=== PATIENT | female | born 1975 | race Caucasian/White ===

== ENCOUNTER 2018-02-10 21:15 | Emergency (ER) | payer OTHER ==
[~2018-02-10] VITALS: Ht 160 cm; Wt 75.7 kg
[~2018-02-10 21:15] MED LIST: IBUPROFEN800 MG PO; Micronor PO; Motrin PO
[2018-02-10 21:53] LABS: APPEARANCE CLOUDY ((CLEAR)); BILIRUBIN NEGATIVE; BLOOD MODERATE; COLOR YELLOW ((YELLOW)); GLUCOSE (STRIP) NEGATIVE; KETONES 5; LEUKOCYTES LARGE; NITRITE NEGATIVE; PROTEIN (STRIP) 30; SPECIFIC GRAVITY 1.028 (1.000-1.030); UROBILINOGEN 0.2 MG/DL (0.2-1.0)
[2018-02-10 22:14] LABS: BACTERIA 1+ /HPF; EPITHELIAL CELLS 2+ /HPF; MUCUS RARE /LPF; UCUL ADDED? YES; WHITE BLOOD CELLS 15-20 /HPF (0-5)
[2018-02-10 22:14] LABS: HEMATOCRIT 47.9 % (36.0-46.0); HEMOGLOBIN 16.8 G/DL (11.9-15.5); MCH 30.6 PG (29.0-34.0); MCHC 35.1 G/DL (30.0-36.0); MCV 87.2 FL (83-99); PLATELET COUNT 174 K/uL (156-360); RBC DIS.WIDTH-CV 11.9 % (11.8-14.6); RBC DIS.WIDTH-SD 38.2 % (39-53); RED BLOOD COUNT 5.49 M/uL (3.80-5.20)
[2018-02-10 22:29] LABS: ALBUMIN 4.6 g/dL (3.2-4.8)
[2018-02-10 22:30] LABS: CHLORIDE 107 mEq/L (99-109); POTASSIUM 3.5 mEq/L (3.7-5.4); SODIUM 140 mEq/L (136-147)
[2018-02-10 22:32] LABS: GLUCOSE 85 mg/dL (70-99); TOTAL PROTEIN 7.5 g/dL (6.4-8.3)
[2018-02-10 22:34] LABS: TOTAL BILIRUBIN 0.6 mg/dL (0.0-1.0)
[2018-02-10 22:35] LABS: ALKALINE PHOSPHATASE 70 IU/L (3-129)
[2018-02-10 22:36] LABS: GFR ESTIMATE (CALCULATED) > 59 mL/min/
[2018-02-10 22:37] LABS: AST (GOT) 21 IU/L (2-34); UREA NITROGEN (BUN) 13 mg/dL (9-23)
[2018-02-10 22:39] LABS: ALT (GPT) 15 IU/L (3-49); LIPASE 28 U/L (1.0-51.0)
[2018-02-10 22:49] LABS: QUANTITATIVE HCG < 4.0 MIU/ML
[2018-02-11] MEDS ORDERED: BACTRIM,SEPT1 TABLET PO (03:49)
[2018-02-11] MEDS ORDERED: ZOFRAN ODT4 MG PO (04:08)
[2018-02-11 04:58] VITALS: BP 121/81
== END 2018-02-11 04:59 | disposition home or self-care (01) ==
LOC: EME 21:15
DX: K52.9 Noninfective gastroenteritis and colitis, unspecified (principal); N39.0 Urinary tract infection, site not specified; E03.9 Hypothyroidism, unspecified
CPT/HCPCS: 74177; 80053; 81003; 83690; 84702; 85027; 87086; 99281; 99284; J7120